=== PATIENT | female | born 1975 | race African-American/Black ===

== ENCOUNTER 2017-02-04 10:21 | Inpatient (IN) | payer OTHER ==
[2017-02-04 10:37] VITALS: BMI 34.9
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
[2017-02-04] MEDS ORDERED: ACETAMINOPHEN 325 MG TABLET (FP) PO PRN (12:59)
[2017-02-04] MEDS ORDERED: MENTHOL/PHENOL 1 EACH UD MM PRN (12:59)
[2017-02-04] MEDS ORDERED: MAGNESIUM HYDROX 2400MG/30ML ORAL SUSPENSION 30 ML CUP PO PRN (12:59)
[2017-02-04] MEDS ORDERED: hydrOXYzine PAMOATE 25 MG CAPSULE (FP) PO PRN (12:59)
[2017-02-04] MEDS ORDERED: LOPERAMIDE HCL 2 MG CAPSULE PO PRN (12:59)
[2017-02-04] MEDS ORDERED: chlordiazePOXIDE HCL 25 MG CAPSULE PO PRN (12:59)
[2017-02-04] MEDS ORDERED: IBUPROFEN 400 MG TABLET (FP) PO PRN (12:59)
[2017-02-04] MEDS ORDERED: MAG HYDROX/AL HYDROX/SIMETH 30 ML UNIT-DOSE CUP PO PRN (12:59)
[2017-02-04] MEDS ORDERED: guaiFENesin/D-METHORPHAN HB 10 ML UNIT-DOSE CUPS PO PRN (12:59)
[2017-02-04] MEDS ORDERED: NICOTINE POLACRILEX 2 MG GUM BC PRN (12:59)
[2017-02-04] MEDS ORDERED: MAGNESIUM CITRATE 300 ML BOTTLE PO PRN (12:59)
[2017-02-04] MEDS ORDERED: P-EPHED 60MG/TRIPROLIDI 2.5MG TABLET PO PRN (12:59)
[2017-02-04] MEDS ORDERED: ALBUTEROL SO4 18 GM HFA INHALER IH PRN (13:06)
[2017-02-04] MEDS ORDERED: cloNIDine HCL 0.1 MG TABLET PO ONE (14:00)
[2017-02-04] MEDS ORDERED: chlordiazePOXIDE HCL 25 MG CAPSULE PO ONE (14:00)
[2017-02-04 14:34] LABS: MCH 27.3 pg (25.7-33.7); MCHC 32.8 g/dl (32.0-36.0); MEAN CELL VOLUME 83.2 fl (80-96); MEAN PLT VOLUME 8.3 fl (7.5-11.1); PLATELET COUNT 192 K/MM3 (134-434); RDW 15.7 % (11.6-15.6); WHITE BLOOD COUNT 6.3 K/mm3 (4.0-10.0)
[2017-02-04 14:46] LABS: ALBUMIN 3.8 g/dl (3.4-5.0); ANION GAP 9 (8-16); CALCIUM 9.1 mg/dL (8.5-10.1); CO2 29 mmol/L (21-32); GLUCOSE,RANDOM 106 mg/dL (74-106)
[2017-02-04 14:52] LABS: ALK PHOS 49 U/L (45-117); BILIRUBIN,TOTAL 0.6 mg/dL (0.2-1.0); CREATININE 1.1 mg/dL (0.55-1.02); SGOT/AST 50 U/L (15-37); SGPT/ALT 22 U/L (12-78); TOT PROT 7.8 g/dl (6.4-8.2)
[2017-02-04] MEDS: BUPRENORPHINE/NALOXONE 8 MG/2 MG FILM PACKET SL SCH ×2 (15:12→22:20)
[2017-02-04] MEDS: NICOTINE 14 MG/24 HOURS TOPICAL PATCH TD SCH (15:20)
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
[2017-02-04 17:15] LABS: SICKLE CELL SCREEN POSITIVE (NEGATIVE)
[2017-02-04] MEDS: chlordiazePOXIDE HCL 25 MG CAPSULE PO SCH ×2 (17:41→22:20)
[2017-02-04] MEDS: cloNIDine HCL 0.1 MG TABLET PO SCH (22:20)
[2017-02-04] MEDS: OLANZapine 10 MG TABLET PO SCH (22:21)
[2017-02-04] MEDS: THIAMINE HCL 100 MG TABLET (FP) PO SCH (22:21)
[2017-02-05 01:55] LABS: URINE APPEARANCE SLCLOUDY; URINE BILIRUBIN NEGATIVE (NEGATIVE); URINE BLOOD NEGATIVE (NEGATIVE); URINE COLOR YELLOW; URINE GLUCOSE (UA) NEGATIVE (NEGATIVE); URINE KETONE NEGATIVE (NEGATIVE); URINE NITRITE NEGATIVE (NEGATIVE); URINE PROTEIN NEGATIVE (NEGATIVE); URINE UROBILINOGEN NEGATIVE mg/dL (0.2-1.0)
[2017-02-05] MEDS: chlordiazePOXIDE HCL 25 MG CAPSULE PO SCH ×4 (05:26→22:19)
[2017-02-05] MEDS: PRENATAL VITAMINS W/ FOLIC ACID TABLET (FP) PO SCH (10:30)
[2017-02-05] MEDS: FLUoxetine HCL 10 MG CAPSULE (FP) PO SCH (10:30)
[2017-02-05] MEDS: BUPRENORPHINE/NALOXONE 8 MG/2 MG FILM PACKET SL SCH ×2 (10:30→22:19)
[2017-02-05] MEDS: cloNIDine HCL 0.1 MG TABLET PO SCH ×2 (10:30→22:19)
[2017-02-05] MEDS: NICOTINE 14 MG/24 HOURS TOPICAL PATCH TD SCH (10:32)
[2017-02-05 11:57] LABS: URINE LEUK ESTERASE 1+ (NEGATIVE)
[2017-02-05] MEDS ORDERED: PNEUMOCOCCAL 23 VACCINE 0.5 ML VIAL IM ONE (12:00)
[2017-02-05] MEDS ORDERED: FLU VACCINE QUAD 60 MCG/0.5 ML (MDV 17-18) IM ONE (12:00)
[2017-02-05] MEDS ORDERED: PNEUMOC 13-VAL CONJ-DIP CRM/PF 0.5 ML DISP.SYRIN IM ONE (12:00)
--- NOTE | 2017-02-05 14:27 | PN ---
[facility] CIWA - CIWA Score Nausea/Vomitin Muscle Tremors: 3 Anxiety: 3 Agitation: 3 Paroxysmal Sweats: 1-Minimal Palms Moist Orientation: 0-Oriented Tacttile Disturbances: 1-Very Mild Itch/Numbness Auditory Disturbances: 1-Very Mild Visual Disturbances: 0-None Headache: 2-Mild CIWA-Ar Total Score: 17 BHS Progress Note (SOAP) Subjective: alert,irritable,anxious,interrupted sleep,tremor,pain in the body Objective: 02/05/17 14:24 Vital Signs Temperature 97.2 F L 02/05/17 11:38 Pulse Rate 71 02/05/17 11:38 Respiratory Rate 18 02/05/17 11:38 Blood Pressure 104/65 02/05/17 11:38 O2 Sat by Pulse Oximetry (%) ekg nsr,lvh no chest pain,no sob,no dizziness Laboratory Last Values WBC 6.3 K/mm3 (4.0-10.0) 02/04/17 13:00 RBC 5.32 M/mm3 (3.60-5.2) H 02/04/17 13:00 Hgb 14.5 GM/dL (10.7-15.3) 02/04/17 13:00 Hct 44.3 % (32.4-45.2) 02/04/17 13:00 MCV 83.2 fl (80-96) 02/04/17 13:00 MCH 27.3 pg (25.7-33.7) 02/04/17 13:00 MCHC 32.8 g/dl (32.0-36.0) 02/04/17 13:00 RDW 15.7 % (11.6-15.6) H 02/04/17 13:00 Plt Count 192 K/MM3 (134-434) 02/04/17 13:00 MPV 8.3 fl (7.5-11.1) 02/04/17 13:00 Manual Slide Review No Result Required. 02/04/17 13:00 Sickle Cell Screen Positive (NEGATIVE) 02/04/17 13:00 Sodium 140 mmol/L (136-145) 02/04/17 13:00 Potassium 3.6 mmol/L (3.5-5.1) 02/04/17 13:00 Chloride 102 mmol/L (98-107) 02/04/17 13:00 Carbon Dioxide 29 mmol/L (21-32) 02/04/17 13:00 Anion Gap 9 (8-16) 02/04/17 13:00 BUN 14 mg/dL (7-18) 02/04/17 13:00 Creatinine 1.1 mg/dL (0.55-1.02) H 02/04/17 13:00 Creat Clearance w eGFR 54.47 (>60) 02/04/17 13:00 Random Glucose 106 mg/dL (74-106) 02/04/17 13:00 Calcium 9.1 mg/dL (8.5-10.1) 02/04/17 13:00 Total Bilirubin 0.6 mg/dL (0.2-1.0) 02/04/17 13:00 AST 50 U/L (15-37) H 02/04/17 13:00 ALT 22 U/L (12-78) 02/04/17 13:00 Alkaline Phosphatase 49 U/L (45-117) 02/04/17 13:00 Total Protein 7.8 g/dl (6.4-8.2) 02/04/17 13:00 Albumin 3.8 g/dl (3.4-5.0) 02/04/17 13:00 Urine Color Yellow 02/04/17 18:03 Urine Appearance Slcloudy 02/04/17 18:03 Urine pH 6.0 (5.0-8.0) 02/04/17 18:03 Ur Specific [place] 1.017 (1.001-1.035) 02/04/17 18:03 Urine Protein Negative (NEGATIVE) 02/04/17 18:03 Urine Glucose (UA) Negative (NEGATIVE) 02/04/17 18:03 Urine Ketones Negative (NEGATIVE) 02/04/17 18:03 Urine Blood Negative (NEGATIVE) 02/04/17 18:03 Urine Nitrite Negative (NEGATIVE) 02/04/17 18:03 Urine Bilirubin Negative (NEGATIVE) 02/04/17 18:03 Urine Urobilinogen Negative mg/dL (0.2-1.0) 02/04/17 18:03 Ur Leukocyte Esterase 1+ (NEGATIVE) H 02/04/17 18:03 RPR Titer Nonreactive (NONREACTIVE) 02/04/17 13:00 Assessment: 02/05/17 14:26 withdrawal symptom Plan: continue detox
[2017-02-05] MEDS: THIAMINE HCL 100 MG TABLET (FP) PO SCH (22:19)
[2017-02-05] MEDS: OLANZapine 10 MG TABLET PO SCH (22:19)
[2017-02-06] MEDS: chlordiazePOXIDE HCL 25 MG CAPSULE PO SCH ×2 (05:28→10:37)
[2017-02-06] MEDS: BUPRENORPHINE/NALOXONE 8 MG/2 MG FILM PACKET SL SCH ×2 (10:37→22:27)
[2017-02-06] MEDS: PRENATAL VITAMINS W/ FOLIC ACID TABLET (FP) PO SCH (10:37)
[2017-02-06] MEDS: cloNIDine HCL 0.1 MG TABLET PO SCH ×2 (10:38→22:27)
[2017-02-06] MEDS: FLUoxetine HCL 10 MG CAPSULE (FP) PO SCH (10:38)
[2017-02-06] MEDS: NICOTINE 14 MG/24 HOURS TOPICAL PATCH TD SCH (10:39)
--- NOTE | 2017-02-06 10:53 | PN ---
[facility] CIWA - CIWA Score Nausea/Vomitin Muscle Tremors: 3 Anxiety: 2 Agitation: 3 Paroxysmal Sweats: 1-Minimal Palms Moist Orientation: 0-Oriented Tacttile Disturbances: 1-Very Mild Itch/Numbness Auditory Disturbances: 1-Very Mild Visual Disturbances: 1-Very Mild Sensitivity Headache: 2-Mild CIWA-Ar Total Score: 17 BHS Progress Note (SOAP) Subjective: alert,irritable,anxious,interrupted sleep,tremor Objective: 02/06/17 10:52 Vital Signs Temperature 96 F L 02/06/17 09:45 Pulse Rate 94 H 02/06/17 09:45 Respiratory Rate 18 02/06/17 09:45 Blood Pressure 141/96 02/06/17 09:45 O2 Sat by Pulse Oximetry (%) Laboratory Last Values WBC 6.3 K/mm3 (4.0-10.0) 02/04/17 13:00 RBC 5.32 M/mm3 (3.60-5.2) H 02/04/17 13:00 Hgb 14.5 GM/dL (10.7-15.3) 02/04/17 13:00 Hct 44.3 % (32.4-45.2) 02/04/17 13:00 MCV 83.2 fl (80-96) 02/04/17 13:00 MCH 27.3 pg (25.7-33.7) 02/04/17 13:00 MCHC 32.8 g/dl (32.0-36.0) 02/04/17 13:00 RDW 15.7 % (11.6-15.6) H 02/04/17 13:00 Plt Count 192 K/MM3 (134-434) 02/04/17 13:00 MPV 8.3 fl (7.5-11.1) 02/04/17 13:00 Manual Slide Review No Result Required. 02/04/17 13:00 Sickle Cell Screen Positive (NEGATIVE) 02/04/17 13:00 Sodium 140 mmol/L (136-145) 02/04/17 13:00 Potassium 3.6 mmol/L (3.5-5.1) 02/04/17 13:00 Chloride 102 mmol/L (98-107) 02/04/17 13:00 Carbon Dioxide 29 mmol/L (21-32) 02/04/17 13:00 Anion Gap 9 (8-16) 02/04/17 13:00 BUN 14 mg/dL (7-18) 02/04/17 13:00 Creatinine 1.1 mg/dL (0.55-1.02) H 02/04/17 13:00 Creat Clearance w eGFR 54.47 (>60) 02/04/17 13:00 Random Glucose 106 mg/dL (74-106) 02/04/17 13:00 Calcium 9.1 mg/dL (8.5-10.1) 02/04/17 13:00 Total Bilirubin 0.6 mg/dL (0.2-1.0) 02/04/17 13:00 AST 50 U/L (15-37) H 02/04/17 13:00 ALT 22 U/L (12-78) 02/04/17 13:00 Alkaline Phosphatase 49 U/L (45-117) 02/04/17 13:00 Total Protein 7.8 g/dl (6.4-8.2) 02/04/17 13:00 Albumin 3.8 g/dl (3.4-5.0) 02/04/17 13:00 Urine Color Yellow 02/04/17 18:03 Urine Appearance Slcloudy 02/04/17 18:03 Urine pH 6.0 (5.0-8.0) 02/04/17 18:03 Ur Specific [place] 1.017 (1.001-1.035) 02/04/17 18:03 Urine Protein Negative (NEGATIVE) 02/04/17 18:03 Urine Glucose (UA) Negative (NEGATIVE) 02/04/17 18:03 Urine Ketones Negative (NEGATIVE) 02/04/17 18:03 Urine Blood Negative (NEGATIVE) 02/04/17 18:03 Urine Nitrite Negative (NEGATIVE) 02/04/17 18:03 Urine Bilirubin Negative (NEGATIVE) 02/04/17 18:03 Urine Urobilinogen Negative mg/dL (0.2-1.0) 02/04/17 18:03 Ur Leukocyte Esterase 1+ (NEGATIVE) H 02/04/17 18:03 RPR Titer Nonreactive (NONREACTIVE) 02/04/17 13:00 Assessment: 02/06/17 10:52 withdrawal symptom Plan: continue detox,history of sickle cell trait
[2017-02-06] MEDS: chlordiazePOXIDE 5 MG CAPSULE PO SCH ×2 (17:40→22:26)
[2017-02-06] MEDS: OLANZapine 10 MG TABLET PO SCH (22:26)
[2017-02-06] MEDS: THIAMINE HCL 100 MG TABLET (FP) PO SCH (22:27)
[2017-02-06] MEDS: ZOLPIDEM TARTRATE 10 MG TABLET (PARK CARE ONLY) PO PRN (22:27)
[2017-02-07] MEDS: chlordiazePOXIDE 5 MG CAPSULE PO SCH ×2 (06:58→13:11)
[2017-02-07] MEDS: PRENATAL VITAMINS W/ FOLIC ACID TABLET (FP) PO SCH (10:23)
[2017-02-07] MEDS: cloNIDine HCL 0.1 MG TABLET PO SCH ×2 (10:23→22:17)
[2017-02-07] MEDS: FLUoxetine HCL 10 MG CAPSULE (FP) PO SCH (10:23)
[2017-02-07] MEDS: BUPRENORPHINE/NALOXONE 8 MG/2 MG FILM PACKET SL SCH ×2 (10:24→22:17)
--- NOTE | 2017-02-07 11:35 | PN ---
BHS Progress Note (SOAP) Subjective: irritable agitation anxiety sweats Objective: 02/07/17 11:35 Vital Signs Temperature 97.5 F L 02/07/17 09:40 Pulse Rate 86 02/07/17 09:40 Respiratory Rate 16 02/07/17 09:40 Blood Pressure 102/66 02/07/17 09:40 O2 Sat by Pulse Oximetry (%) aaox3 ambulating no acute distress Assessment: 02/07/17 11:35 withdrawal sx Plan: continue detox increase fluids
[2017-02-07] MEDS: NICOTINE 14 MG/24 HOURS TOPICAL PATCH TD SCH (13:11)
[2017-02-07] MEDS: chlordiazePOXIDE HCL 10 MG CAPSULE PO SCH ×2 (16:58→22:17)
[2017-02-07] MEDS: OLANZapine 10 MG TABLET PO SCH (22:17)
[2017-02-07] MEDS: ZOLPIDEM TARTRATE 10 MG TABLET (PARK CARE ONLY) PO PRN (22:17)
[2017-02-07] MEDS: THIAMINE HCL 100 MG TABLET (FP) PO SCH (22:18)
--- NOTE | 2017-02-08 01:05 | EKG ---
Test Reason : Blood Pressure : / mmHG Vent. Rate : 066 BPM Atrial Rate : 066 BPM P-R Int : 138 ms QRS Dur : 084 ms QT Int : 420 ms P-R-T Axes : 064 038 041 degrees QTc Int : 440 ms NORMAL SINUS RHYTHM MINIMAL VOLTAGE CRITERIA FOR LVH, MAY BE NORMAL VARIANT BORDERLINE ECG NO PREVIOUS ECGS AVAILABLE Confirmed by THERON JORDAN MD ([id number]) on 02/08/2017 1:05:16 AM Referred By: Confirmed By:THERON JORDAN MD
[2017-02-08] MEDS: chlordiazePOXIDE HCL 10 MG CAPSULE PO SCH ×2 (07:36→10:47)
--- NOTE | 2017-02-08 08:57 | DS ---
[facility] Detox Discharge Summary Admission Date: 02/04/17 Discharge Date: 02/08/17 - History Present History: Opioid Dependence - Physical Exam Results Vital Signs: Vital Signs Temperature 98.1 F 02/08/17 06:00 Pulse Rate 72 02/08/17 06:00 Respiratory Rate 18 02/08/17 06:00 Blood Pressure 109/78 02/08/17 06:00 O2 Sat by Pulse Oximetry (%) - Treatment Hospital Course: Detox Protocol Followed, Detoxed Safely, Responded well, Discharged Condition Good, Rehab Referral Accepted - Medication Discharge Medications: Ambulatory Orders Albuterol Sulfate Inhaler - [Ventolin Hfa Inhaler -] 2 inh PO Q4H PRN 02/04/17 Buprenorphine/Naloxone [Suboxone 8Mg/2Mg Sl Film -] 1 each SL BID 02/04/17 Diphenhydramine [Benadryl -] 50 mg PO HS 02/04/17 Fluoxetine HCl [Prozac -] 10 mg PO DAILY 02/04/17 Olanzapine [Zyprexa -] 5 mg PO DAILY 02/04/17 Olanzapine [Zyprexa -] 10 mg PO HS 02/04/17 - Diagnosis (1) Alcohol dependence with uncomplicated withdrawal Current Visit: Yes Status: Chronic (2) Cocaine dependence, uncomplicated Current Visit: Yes Status: Chronic (3) Insomnia Current Visit: Yes Status: Chronic Qualifiers: Insomnia type: primary Qualified Code(s): F51.01 - Primary insomnia (4) Nicotine dependence Current Visit: Yes Status: Chronic Qualifiers: Nicotine product type: cigarettes Substance use status: uncomplicated Qualified Code(s): F17.210 - Nicotine dependence, cigarettes, uncomplicated (5) Opioid dependence Current Visit: Yes Status: Acute Qualifiers: Substance use status: uncomplicated Qualified Code(s): F11.20 - Opioid dependence, uncomplicated (6) Sickle cell trait Current Visit: Yes Status: Acute (7) Substance induced mood disorder Current Visit: Yes Status: Acute (8) Asthma Current Visit: Yes Status: Chronic Qualifiers: Asthma severity: mild Asthma persistence: unspecified Asthma complication type: uncomplicated Qualified Code(s): J45.909 - Unspecified asthma, uncomplicated (9) Bipolar disorder Current Visit: Yes Status: Chronic (10) Encounter for monitoring Suboxone maintenance therapy Current Visit: Yes Status: Chronic (11) HTN (hypertension) Current Visit: Yes Status: Chronic Qualifiers: Hypertension type: unspecified Qualified Code(s): I10 - Essential (primary ) hypertension (12) History of hepatitis C Current Visit: Yes Status: Resolved - AMA Did Patient Leave Against Medical Advice: No
[2017-02-08] MEDS: FLUoxetine HCL 10 MG CAPSULE (FP) PO SCH (10:46)
[2017-02-08] MEDS: PRENATAL VITAMINS W/ FOLIC ACID TABLET (FP) PO SCH (10:46)
[2017-02-08] MEDS: cloNIDine HCL 0.1 MG TABLET PO SCH (10:46)
[2017-02-08] MEDS: BUPRENORPHINE/NALOXONE 8 MG/2 MG FILM PACKET SL SCH (10:47)
[2017-02-08] MEDS: NICOTINE 14 MG/24 HOURS TOPICAL PATCH TD SCH (10:48)
[2017-02-08 11:51] VITALS: BP 145/94; PULSE 83; TEMP 99
[2017-02-14 12:47] LABS: Hgb A2 4.6
[2017-02-14 12:49] LABS: HGB VARIANT- SEE FILE COPY
== END 2017-02-08 13:18 | disposition other institution (70) | DRG 773 ==
LOC: YASAS 10:21 → Y6N 13:17
PROVIDERS: ADMIT Internal Medicine; ATTEND Internal Medicine
PROC: HZ2ZZZZ Detoxification Services for Substance Abuse Treatment (ICD-10-PCS; principal; 2017-02-04)
DX: F11.20 Opioid dependence, uncomplicated (principal); F10.230 Alcohol dependence with withdrawal, uncomplicated; F14.20 Cocaine dependence, uncomplicated; F17.210 Nicotine dependence, cigarettes, uncomplicated; F19.24 Other psychoactive substance dependence with psychoactive substance-induced mood disorder; F31.9 Bipolar disorder, unspecified; J45.909 Unspecified asthma, uncomplicated; I10 Essential (primary) hypertension; B18.2 Chronic viral hepatitis C; G47.00 Insomnia, unspecified
CPT/HCPCS: 36415; 80053; 81003; 81015; 83021; 85027; 85660; 86593; 90688; 90732; 93005; 93010; G0008; G0009

== ENCOUNTER 2017-02-08 13:38 | Inpatient (IN) | payer OTHER ==
[2017-02-08] MEDS ORDERED: ALBUTEROL SO4 18 GM HFA INHALER IH PRN (14:06)
[2017-02-08] MEDS ORDERED: hydrOXYzine PAMOATE 50 MG CAPSULE (FP) PO PRN (14:07)
[2017-02-08] MEDS ORDERED: MAGNESIUM HYDROX 2400MG/30ML ORAL SUSPENSION 30 ML CUP PO PRN (14:07)
[2017-02-08] MEDS ORDERED: P-EPHED 60MG/TRIPROLIDI 2.5MG TABLET PO PRN (14:07)
[2017-02-08] MEDS ORDERED: MAGNESIUM CITRATE 300 ML BOTTLE PO PRN (14:07)
[2017-02-08] MEDS ORDERED: ACETAMINOPHEN 325 MG TABLET (FP) PO PRN (14:07)
[2017-02-08] MEDS ORDERED: IBUPROFEN 400 MG TABLET (FP) PO PRN (14:07)
[2017-02-08] MEDS ORDERED: LOPERAMIDE HCL 2 MG CAPSULE PO PRN (14:07)
[2017-02-08] MEDS ORDERED: MENTHOL/PHENOL 1 EACH UD MM PRN (14:07)
[2017-02-08] MEDS ORDERED: guaiFENesin/D-METHORPHAN HB 10 ML UNIT-DOSE CUPS PO PRN (14:07)
--- NOTE | 2017-02-08 14:11 | HP ---
[facility] Rehab Assess/Revision - Admission History Admitted to Rehab from: [facility] [place] Date of Admission to Rehab: 02/08/2017 - Vital signs Vital Signs: as per medical record - Findings Detox History & Physical reviewed: Yes Concur with findings: Yes Inpatient Rehab Admission - Initial Determination Are CD services needed?: Yes Free of communicable disease: Yes Not in need of hospitalization: Yes - Rehab Admission Criteria Comorbidities: Yes Patient is meeting Inpatient Rehab admission criteria:: Yes
[2017-02-08] MEDS ORDERED: BUPRENORPHINE/NALOXONE 8 MG/2 MG FILM PACKET SL ONE (14:18)
[2017-02-08] MEDS: MAG HYDROX/AL HYDROX/SIMETH 30 ML UNIT-DOSE CUP PO PRN (16:09)
[2017-02-08] MEDS: THIAMINE HCL 100 MG TABLET (FP) PO SCH (21:44)
[2017-02-08] MEDS: OLANZapine 5 MG TABLET PO SCH (21:44)
[2017-02-09] MEDS: PRENATAL VITAMINS W/ FOLIC ACID TABLET (FP) PO SCH (09:59)
[2017-02-09] MEDS: OLANZapine 5 MG TABLET PO SCH ×2 (10:00→21:41)
[2017-02-09] MEDS: BUPRENORPHINE/NALOXONE 8 MG/2 MG FILM PACKET SL SCH (10:00)
[2017-02-09] MEDS: FLUoxetine HCL 10 MG CAPSULE (FP) PO SCH (10:01)
[2017-02-09] MEDS: MAG HYDROX/AL HYDROX/SIMETH 30 ML UNIT-DOSE CUP PO PRN (10:03)
[2017-02-09 10:55] LABS: HIV 1 & 2 AB NEGATIVE; HIV 1 AGp24 NEGATIVE
--- NOTE | 2017-02-09 12:28 | PN ---
BHS Progress Note (SOAP) Subjective: patient taking suboxone 8mg x2 daily in am, no cravings, no withdrawal sx reported. has been running high bp as per nursing staff was on clonidine for withdawl sx Objective: 02/09/17 12:26 Vital Signs - 24 hr 02/08/17 02/09/17 02/09/17 14:24 03:30 07:49 Temperature 97.0 F L Pulse Rate 90 70 Respiratory 18 18 18 Rate Blood Pressure 132/89 136/93 02/09/17 09:50 Temperature Pulse Rate 92 H Respiratory Rate Blood Pressure 144/92 Laboratory Tests 02/09/17 06:00 HIV 1&2 Antibody Screen Negative HIV P24 Antigen Negative labs and chart reveiwed, ekg and imagin reviewed Assessment: 02/09/17 12:27 opioid dependence - cont suboxone on current dose, patient is comforable will follow up on this dose as outpatient no need to increase, clondiine 0.1m g x1, start hctz 12.5 mg daily for essential HTN. patient informed to follow up with PCP for control of BP as outpatient. dietary consult ordere.
--- NOTE | 2017-02-09 13:04 | HP ---
Psychiatrist Admission - Data Date of interview: 02/09/17 Admission source: [facility] detox Identifying data: This is the first admission to [address] [place] [address] this 41 years old AA female single mother of 4(children reside with the patient's brother).Patient is homeless,supported by [facility]. Medical History: Significant for HTN,BA,Sickle cell traits. Psychiatric History: [facility] contact with psychiatrist josy [facility] being [facility] 1999 to address auditory and visual (she saw shadows of people) hallucinations.Patient was dx with Schizoaffective disorder and placed on psychotropics(Haldol Decanoate and Seroquel).She reports 2 more psychiatric hospitalizations,most recent was in 2006 to [facility] due to suicidal attempt(DOD).Patient sees psychiatrist at [facility].Current medications: Physical/Sexual Abuse/Trauma History: denies Vital Signs: Vital Signs - 24 hr 02/08/17 02/09/17 02/09/17 14:24 03:30 07:49 Temperature 97.0 F L Pulse Rate 90 70 Respiratory 18 18 18 Rate Blood Pressure 132/89 136/93 02/09/17 09:50 Temperature Pulse Rate 92 H Respiratory Rate Blood Pressure 144/92 Allergies/Adverse Reactions: Allergies Allergy/AdvReac Type Severity Reaction Status Date / Time No Known Allergies Allergy Verified 02/04/17 12:07 Date of last physical exam: 02/08/17 Concur with the findings of this exam: Yes - Substance Abuse/Tx History Hx Alcohol Use: Yes (reports drinking since 10 yo,beer,then hard liquors) Hx Substance Use: Yes (crack since 22 yo,heroin since 2014) Substance Use Type: Alcohol, Cocaine, Heroin Hx Substance Use Treatment: Yes (this is her first inpatient rehabilitationtreatment) Mental Status Exam - Mental Status Exam Alert and Oriented to: Time, Place, Person Cognitive Function: Grossly Intact Patient Appearance: Unkempt Mood: Euthymic Affect: Mood Congruent Patient Behavior: Cooperative Speech Pattern: Clear Voice Loudness: Normal Thought Process: Goal Oriented Thought Disorder: Being Controlled Hallucinations: Denies Suicidal Ideation: Denies Homicidal Ideation: Denies Insight/Judgement: Fair Sleep: Fair Appetite: Good Muscle strength/Tone: Normal Gait/Station: Normal Psychiatric Findings - Problem List ([place] 1, 2,3) (1) Essential hypertension Current Visit: Yes Status: Chronic (2) Opioid dependence Current Visit: No Status: Chronic Qualifiers: Substance use status: uncomplicated Qualified Code(s): F11.20 - Opioid dependence, uncomplicated Comment: Currently on suboxone maintenance. (3) Sickle cell trait Current Visit: Yes Status: Chronic (4) Asthma Current Visit: No Status: Chronic Qualifiers: Asthma severity: mild Asthma persistence: unspecified Asthma complication type: uncomplicated Qualified Code(s): J45.909 - Unspecified asthma, uncomplicated (5) Bipolar disorder Current Visit: Yes Status: Chronic Comment: As per self-report.Currently on medications.Active OPD care. (6) Alcohol dependence Current Visit: Yes Status: Chronic (7) Cocaine dependence Current Visit: Yes Status: Chronic (8) Nicotine dependence Current Visit: No Status: Chronic Qualifiers: Nicotine product type: cigarettes Substance use status: uncomplicated Qualified Code(s): F17.210 - Nicotine dependence, cigarettes, uncomplicated (9) History of hepatitis C Current Visit: No Status: Inactive Comment: PT STATES HX OF TREATMENT AND UNDETECTED. - Initial Treatment Plan Initial Treatment Plan: Zyprexa 5 mg po bid,Prozac 10 mg po daily and Wellbutrin 150 mg po daily. Will monitor progress.
[2017-02-09] MEDS ORDERED: cloNIDine HCL 0.1 MG TABLET PO ONE (13:15)
[2017-02-09] MEDS: HYDROCHLOROTHIAZIDE 12.5 MG CAPSULE (FP) PO SCH (13:21)
[2017-02-09 14:20] LABS: URINE APPEARANCE CLEAR; URINE BILIRUBIN NEGATIVE (NEGATIVE); URINE BLOOD 1+ (NEGATIVE); URINE COLOR LT. YELLOW; URINE GLUCOSE (UA) NEGATIVE (NEGATIVE); URINE KETONE NEGATIVE (NEGATIVE); URINE NITRITE NEGATIVE (NEGATIVE); URINE PROTEIN NEGATIVE (NEGATIVE); URINE UROBILINOGEN 0.2 mg/dL (0.2-1.0)
[2017-02-09 15:10] LABS: URINE MUCUS RARE; URINE RBC 2 /hpf (0-3); URINE WBC 1 /hpf (3-5)
[2017-02-09 19:35] LABS: URINE LEUK ESTERASE Negative (NEGATIVE)
[2017-02-09] MEDS: THIAMINE HCL 100 MG TABLET (FP) PO SCH (21:41)
[2017-02-10 07:25] VITALS: BP 131/93; PULSE 73; TEMP 97.1
[2017-02-10] MEDS: BUPRENORPHINE/NALOXONE 8 MG/2 MG FILM PACKET SL SCH (10:24)
[2017-02-10] MEDS: HYDROCHLOROTHIAZIDE 12.5 MG CAPSULE (FP) PO SCH (10:24)
[2017-02-10] MEDS: PRENATAL VITAMINS W/ FOLIC ACID TABLET (FP) PO SCH (10:24)
[2017-02-10] MEDS: OLANZapine 5 MG TABLET PO SCH (10:24)
[2017-02-10] MEDS: FLUoxetine HCL 10 MG CAPSULE (FP) PO SCH (10:24)
== END 2017-02-10 11:21 | disposition left against medical advice (07) | DRG 770 ==
LOC: YASAS 13:38 → Y3E 13:41
PROVIDERS: ADMIT Psychiatry & Neurology Psychiatry; ATTEND Psychiatry & Neurology Psychiatry
PROC: HZ42ZZZ Group Counseling for Substance Abuse Treatment, Cognitive-Behavioral (ICD-10-PCS; principal; 2017-02-08)
DX: F11.20 Opioid dependence, uncomplicated (principal); F10.20 Alcohol dependence, uncomplicated; F14.20 Cocaine dependence, uncomplicated; F17.210 Nicotine dependence, cigarettes, uncomplicated; F31.9 Bipolar disorder, unspecified; I10 Essential (primary) hypertension; D57.3 Sickle-cell trait; J45.909 Unspecified asthma, uncomplicated; B18.2 Chronic viral hepatitis C
CPT/HCPCS: 36415; 81003; 81015; 87389